=== PATIENT | male | born 1970 | race Caucasian/White ===

== ENCOUNTER 2020-03-14 20:45 | Inpatient (IN) | payer OTHER ==
[2020-03-14] MEDS ORDERED: Morphine 4 MG/ML VIAL SLOW IVP PRN (21:05)
[2020-03-14] MEDS ORDERED: Ondansetron PF 4 MG/2 ML Vial IVP PRN (21:06)
[2020-03-14] MEDS ORDERED: Lorazepam 2 MG/ML VIAL SLOW IVP PRN (21:07)
[2020-03-14] MEDS ORDERED: Bisacodyl 10 MG SUPP PR PRN (21:09)
[2020-03-14] MEDS ORDERED: Scopolamine 1.5 mg/72 hour Patch TOP SCH (21:30)
[2020-03-14] MEDS: Morphine 10 MG/ML VIAL SLOW IVP SCH ×2 (21:41→23:05)
[2020-03-14] MEDS: Lorazepam 2 MG/ML VIAL SLOW IVP SCH (21:44)
[2020-03-14 21:50] VITALS: BMI 27.3
[2020-03-14 22:03] VITALS: BP 96/51; TEMP 97.7
[2020-03-15] MEDS: Morphine 10 MG/ML VIAL SLOW IVP SCH ×3 (00:01→02:02)
[2020-03-15] MEDS: Lorazepam 2 MG/ML VIAL SLOW IVP SCH ×2 (00:01→02:02)
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
== END 2020-03-15 02:32 | disposition expired | DRG 951 ==
LOC: ONC 20:45
PROVIDERS: ADMIT Surgery; ATTEND Surgery
DX: Z51.5 Encounter for palliative care (principal); S06.1X9A Traumatic cerebral edema with loss of consciousness of unspecified duration, initial encounter; R40.2311 Coma scale, best motor response, none, in the field [EMT or ambulance]; R40.2111 Coma scale, eyes open, never, in the field [EMT or ambulance]; R40.2211 Coma scale, best verbal response, none, in the field [EMT or ambulance]; J96.00 Acute respiratory failure, unspecified whether with hypoxia or hypercapnia; G93.5 Compression of brain; D62 Acute posthemorrhagic anemia; E87.2 Acidosis; E87.6 Hypokalemia; E83.51 Hypocalcemia; R31.29 Other microscopic hematuria; F10.129 Alcohol abuse with intoxication, unspecified; Y90.8 Blood alcohol level of 240 mg/100 ml or more; I49.9 Cardiac arrhythmia, unspecified; I46.2 Cardiac arrest due to underlying cardiac condition; V86.99XA Unspecified occupant of other special all-terrain or other off-road motor vehicle injured in nontraffic accident, initial encounter
CPT/HCPCS: J2060; J2270